=== PATIENT | female | born 2000 | race Caucasian/White ===

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

== ENCOUNTER 2022-12-25 20:56 | Emergency (ER) | payer OTHER ==
[2022-12-25] MEDS ORDERED: AMOXICILLIN500 M2 PO (21:43)
[2022-12-25] MEDS ORDERED: NYST SUSP PO (21:43)
[2022-12-25] MEDS ORDERED: IBUPROFEN600 MG PO (21:43)
== END 2022-12-25 22:06 | disposition home or self-care (01) ==
LOC: ED 20:56
DX: K08.89 Other specified disorders of teeth and supporting structures (principal); B37.0 Candidal stomatitis; Z90.49 Acquired absence of other specified parts of digestive tract; Z98.890 Other specified postprocedural states

== ENCOUNTER 2023-04-05 15:17 | Emergency (ER) | payer OTHER ==
[~2023-04-05 15:17] MED LIST changes: +AMOXICILLIN500 M2 PO; +IBUPROFEN600 MG PO; +NYST SUSP PO
== END 2023-04-05 16:02 | disposition left against medical advice (07) ==
LOC: ED 15:17
DX: Z00.00 Encounter for general adult medical examination without abnormal findings (principal); Z53.21 Procedure and treatment not carried out due to patient leaving prior to being seen by health care provider